=== PATIENT | female | born 1990 | race Caucasian/White ===

== ENCOUNTER 2023-04-08 12:30 | Inpatient (IN) | payer OTHER ==
[2023-04-08] MEDS ORDERED: CITRIC ACID/SODIUM CITRATE 30 ML UNIT-DOSE CUP PO ONE (13:38)
[2023-04-08] MEDS ORDERED: ELECTROLYTE-148 SOLN 1,000 ML IV SCH (13:45)
[2023-04-08 14:03] VITALS: BMI 34.2
[2023-04-08] MEDS ORDERED: OXYTOCIN 30 UNITS in 0.9% NS 30 UNIT/500 ML INFUS.BAG IVPB ONE (14:50)
[2023-04-08 15:56] LABS: CORD HCO3 25.2 mmHg (20-29); CORD PCO2 53.9 mmHg (30-78); CORD pH 7.287 (7.14-7.44)
[2023-04-08 16:00] LABS: CORD BASE EXCESS -2.5 mmol/L (0-2); CORD HCO3 23.2 mmHg (20-29); CORD pH 7.349 (7.14-7.44)
[2023-04-08] MEDS ORDERED: ONDANSETRON 4 MG/2 ML VIAL IVPUSH PRN (16:07)
[2023-04-08] MEDS ORDERED: ACETAMINOPHEN 325 MG TABLET (FP) PO PRN ×2 (16:07→16:10)
[2023-04-08] MEDS ORDERED: METHYLERGONOVINE MALEATE 0.2 MG/1 ML AMP IM PRN (16:10)
[2023-04-08] MEDS ORDERED: ACETAMINOPHEN 1000 MG/100 ML BAG IVPB PRN (16:11)
[2023-04-08] MEDS ORDERED: OXYTOCIN 20 UNITS in 0.9% NS 20 UNIT/1,000 ML INFUS.BAG IV SCH (16:15)
[2023-04-08] MEDS ORDERED: OXYTOCIN 20 UNITS in 0.9% NS 20 UNIT/1,000 ML INFUS.BAG IV ONE (16:37)
[2023-04-08] MEDS: CEFAZOLIN SODIUM 2 GM in DEXTROSE 5%-WATER 100 ML IVPB SCH (18:30)
[2023-04-09] MEDS: CEFAZOLIN SODIUM 2 GM in DEXTROSE 5%-WATER 100 ML IVPB SCH ×2 (01:45→10:08)
[2023-04-09] MEDS ORDERED: oxyCODONE HCL 5 MG TABLET PO PRN ×2 (04:11)
[2023-04-09] MEDS: SIMETHICONE 80 MG TAB.CHEW (FP) PO PRN ×3 (06:02→22:49)
[2023-04-09] MEDS: IBUPROFEN 600 MG TABLET (FP) PO PRN ×3 (06:04→22:57)
[2023-04-09 09:04] LABS: BASO % 0.2 % (0-2.0); HEMATOCRIT 29.9 % (32.4-45.2); HEMOGLOBIN 10.2 GM/dL (10.7-15.3); LYMPH % 16.3 % (8-40); MCHC 34.1 g/dl (32.0-36.0); MEAN CELL VOLUME 87.9 fl (80-96); MEAN PLT VOLUME 10.8 fl (7.5-11.1); MONO % 3.7 % (3.8-10.2); NEUT % 79.8 % (42.8-82.8); PLATELET COUNT 167 10^3/uL (134-434); RDW 15.2 % (11.6-15.6); WHITE BLOOD COUNT 14.4 K/mm3 (4.0-10.0)
[2023-04-09] MEDS: ENOXAPARIN NA (PORCINE) 40 MG/0.4 ML DISP.SYRIN SQ SCH (09:48)
[2023-04-09] MEDS ORDERED: FLU VACCINE (FLULAVAL) PF 60 MCG/0.5 ML SYRINGE 2023-2024 IM ONE (10:00)
[2023-04-09] MEDS ORDERED: DIPHTH,PERTUSS(ACELL),TET 0.5 ML DISP.SYRIN IM ONE (10:00)
[2023-04-09] MEDS ORDERED: BISACODYL 10 MG SUPP.RECT RC PRN (16:11)
[2023-04-10] MEDS: IBUPROFEN 600 MG TABLET (FP) PO PRN ×3 (06:31→21:23)
[2023-04-10] MEDS: ENOXAPARIN NA (PORCINE) 40 MG/0.4 ML DISP.SYRIN SQ SCH (10:10)
[2023-04-11] MEDS: IBUPROFEN 600 MG TABLET (FP) PO PRN ×2 (07:34→13:23)
[2023-04-11] MEDS: SIMETHICONE 80 MG TAB.CHEW (FP) PO PRN (07:35)
[2023-04-11 07:43] LABS: BASO % 0.3 % (0-2.0); HEMATOCRIT 29.2 % (32.4-45.2); HEMOGLOBIN 9.8 GM/dL (10.7-15.3); MCH 29.8 pg (25.7-33.7); MCHC 33.5 g/dl (32.0-36.0); MEAN CELL VOLUME 89.1 fl (80-96); NEUT % 64.7 % (42.8-82.8); PLATELET COUNT 195 10^3/uL (134-434); RBC 3.28 M/mm3 (3.60-5.2); RDW 15.3 % (11.6-15.6); WHITE BLOOD COUNT 8.3 K/mm3 (4.0-10.0)
[2023-04-11] MEDS: ENOXAPARIN NA (PORCINE) 40 MG/0.4 ML DISP.SYRIN SQ SCH (09:43)
[2023-04-11 10:50] VITALS: BP 109/68; PULSE 71; RESP 16; TEMP 98.2
== END 2023-04-11 14:05 | disposition home or self-care (01) | DRG 540 ==
LOC: JDEL 12:30 → JLDR 13:10 → J3W 17:50
PROVIDERS: ADMIT Obstetrics & Gynecology; ATTEND Obstetrics & Gynecology
PROC: 10D00Z1 Extraction of Products of Conception, Low, Open Approach (ICD-10-PCS; principal; 2023-04-08)
DX: O34.211 Maternal care for low transverse scar from previous cesarean delivery (principal); N85.8 Other specified noninflammatory disorders of uterus; O99.214 Obesity complicating childbirth; O48.0 Post-term pregnancy; Z3A.40 40 weeks gestation of pregnancy; Z37.0 Single live birth
CPT/HCPCS: 36415; 36600; 80053; 82803; 85025; 85610; 86780; 86850; 86900; 86901; 88307-TC; 90686; 90715; G0008